=== PATIENT | female | born 1990 | race Caucasian/White ===

== ENCOUNTER 2016-10-21 10:39 | Emergency (ER) | payer OTHER | END 2016-10-21 13:15 | disposition home or self-care (01) | LOC: ER1 10:39 | DX: G43.909 Migraine, unspecified, not intractable, without status migrainosus (principal); Z79.899 Other long term (current) drug therapy | CPT/HCPCS: 36415; 96361; 96374; 96375; 99283; J1200; J1885; J2765 ==

== ENCOUNTER 2016-11-18 07:45 | Emergency (ER) | payer OTHER | END 2016-11-18 09:58 | disposition home or self-care (01) | LOC: ER1 07:45 | DX: G43.909 Migraine, unspecified, not intractable, without status migrainosus (principal); Z88.1 Allergy status to other antibiotic agents; Z79.899 Other long term (current) drug therapy | CPT/HCPCS: 96361; 96374; 96375; 99283; J1200; J1885; J2765; J7040 ==